=== PATIENT | female | born 1965 | race Caucasian/White ===

== ENCOUNTER 2017-12-10 12:20 | Emergency (ER) | payer MEDICAID ==
[~2017-12-10] VITALS: Ht 162.6 cm; Wt 65.7 kg
[2017-12-10 12:22] VITALS: BP 147/116
[2017-12-10] MEDS ORDERED: GABA-827 PO (12:42)
[2017-12-10] MEDS ORDERED: NAPR220C2 PO (12:44)
== END 2017-12-10 12:51 | disposition home or self-care (01) ==
LOC: ED 12:40
DX: M54.32 Sciatica, left side (principal); Z87.442 Personal history of urinary calculi; J44.9 Chronic obstructive pulmonary disease, unspecified
CPT/HCPCS: 99283